=== PATIENT | female | born 1950 | race Caucasian/White ===

== ENCOUNTER 2017-07-07 10:03 | Day surgery (SDC) | payer MEDICARE ==
[~2017-07-07] VITALS: Ht 165.1 cm; Wt 89.2 kg
[~2017-07-07 10:03] MED LIST: BACITRACIN 50,000 UNIT ONE; BUPIVACAINE/PF 0.5% ONE; THROMBIN 5,000 UNIT VIAL TP ONE
[2017-07-07] MEDS ORDERED: LACTATED RINGERS 1,000 ML IV SCH (11:20)
[2017-07-07 11:21] VITALS: BP 164/91
[2017-07-07] MEDS ORDERED: AMLO5TAB2 PO (11:26)
[2017-07-07] MEDS ORDERED: PRAV20TA2 PO (11:26)
[2017-07-07] MEDS ORDERED: LEVO50TA5 PO (11:26)
[2017-07-07] MEDS ORDERED: ACET-1600 PO (11:26)
[2017-07-07] MEDS ORDERED: METF500T4 PO (11:26)
[2017-07-07] MEDS ORDERED: PLEASE ENTER HEIGHT AND WEIGHT MC SCH (11:30)
[2017-07-07] MEDS ORDERED: MIDAZOLAM 1 MG/ML, 2ML ONE (12:27)
[2017-07-07] MEDS ORDERED: FENTANYL PF 250 MCG/5ML ONE (12:28)
[2017-07-07] MEDS ORDERED: ACETAMINOPHEN 500 MG TABLET ONE (12:57)
[2017-07-07] MEDS ORDERED: GABAPENTIN 300 MG CAPSULE ONE (12:58)
[2017-07-07] MEDS ORDERED: SUCCINYLCHOLINE 20 MG/ML, 10ML ONE (13:05)
[2017-07-07] MEDS ORDERED: PROPOFOL 10 MG/ML, 20ML ONE (13:05)
[2017-07-07] MEDS ORDERED: CEFAZOLIN 1,000 MG ONE (13:05)
[2017-07-07] MEDS ORDERED: DEXAMETHASONE 4 MG/ML, 1ML ONE (13:05)
[2017-07-07] MEDS ORDERED: ONDANSETRON 2MG/ML, 2ML ONE (13:05)
[2017-07-07] MEDS ORDERED: GABAPENTIN 300 MG CAPSULE PO ONE (13:30)
[2017-07-07] MEDS ORDERED: ACETAMINOPHEN 500 MG TABLET PO ONE (13:30)
[2017-07-07] MEDS ORDERED: BUPIVACAINE/PF-EPI 0.5% 1:200K IM ONE (13:40)
[2017-07-07] MEDS ORDERED: hydrALAzine 20 MG/ML, 1ML IV PRN (14:30)
[2017-07-07] MEDS ORDERED: OXYcodone 5 MG/5 ML ORAL.SOL UDC PO PRN (14:30)
[2017-07-07] MEDS ORDERED: HYDROmorphone 1 MG/ML, 1ML IV PRN (14:30)
[2017-07-07] MEDS ORDERED: LABETALOL 5MG/ML, 20ML IV PRN (14:30)
[2017-07-07] MEDS ORDERED: PROMETHAZINE 12.5 MG SUPP PR PRN (14:30)
[2017-07-07] MEDS ORDERED: MORPHINE SULFATE 4 MG/ML, 1ML IV PRN (14:30)
[2017-07-07] MEDS ORDERED: ALBUTEROL SULFATE 2.5 MG/3 ML NPPB PRN (14:30)
[2017-07-07] MEDS ORDERED: METOCLOPRAMIDE 5 MG/ML, 2ML IV PRN (14:30)
[2017-07-07] MEDS ORDERED: LORazepam 2 MG/ML, 1ML IVPush PRN (14:30)
[2017-07-07] MEDS ORDERED: PROMETHAZINE 25 MG/ML, 1ML IV PRN (14:30)
[2017-07-07] MEDS ORDERED: MEPERIDINE/PF 25MG/0.5ML IVPush PRN (14:30)
[2017-07-07] MEDS ORDERED: FENTANYL PF 100 MCG/2ML ONE (14:37)
[2017-07-07] MEDS ORDERED: OXYcodone 5 MG/5 ML ORAL.SOL UDC ONE (14:37)
[2017-07-07] MEDS: FENTANYL PF 100 MCG/2ML IV PRN ×2 (14:41→14:53)
== END 2017-07-07 17:35 | disposition home or self-care (01) ==
LOC: OUT 10:03
PROVIDERS: ATTEND Neurological Surgery
DX: M54.17 Radiculopathy, lumbosacral region (principal); M48.07 Spinal stenosis, lumbosacral region; E11.9 Type 2 diabetes mellitus without complications; I10 Essential (primary) hypertension; E78.5 Hyperlipidemia, unspecified; E03.9 Hypothyroidism, unspecified
CPT/HCPCS: 63047; 63048; 72100; 82962; J0330; J0690; J1100; J2250; J2405; J2704; J3010; J3490; J7120